=== PATIENT | female | born 1995 | race Caucasian/White ===

== ENCOUNTER 2017-08-29 07:54 | Outpatient (CLI) | payer SELFPAY | END 2017-08-29 07:55 | disposition home or self-care (01) | LOC: BICULT 07:54 | PROVIDERS: ATTEND Surgery | DX: N63.10 Unspecified lump in the right breast, unspecified quadrant (principal) ==

== ENCOUNTER 2017-09-28 10:05 | Outpatient (CLI) | payer BC ==
[2017-09-28 10:58] LABS: #Basophils 0.2 thou/uL (0.0-0.2); #Eosinphils 0.2 thou/uL (0.0-0.7); #Lymphocytes 2.5 thou/uL (1.20-3.40); #Monocytes 0.5 thou/uL (0.11-0.59); #Neutrophils 2.8 thou/uL (1.40-6.50); %Basophils 2.6 % (0.0-1.0); %Eosinophils 2.6 % (0.0-10.0); %Lymphocytes 40.5 % (21.0-51.0); %Monocytes 8.8 % (0.0-10.0); %Neutrophils 45.6 % (42.0-75.0); Hemoglobin 14.5 g/dL (12.0-16.0); Mean Corpuscular HGB CONC 33.7 g/dL (32.0-36.0); Mean Corpuscular Hemoglobin 32.6 pg (27.0-31.0); Mean Corpuscular Volume 96.7 fl (81.0-99.0); Mean Platelet Volume 7.3 fL (7.4-10.4); Platelet Count 287 thou/uL (130-400); RBC Distribution Width 11.9 % (11.5-14.5); Red Blood Cell (RBC) Count 4.44 mill/uL (4.20-5.40); White Blood Cell (WBC) Count 6.2 thou/uL (4.8-10.8)
[2017-09-28 11:17] LABS: Anion Gap 9 mmol/L (10-20); BUN (Urea Nitrogen) 10 mg/dL (7.0-18.7); Calc. Creatinine Clearance 0 mL/min (70-130); Calcium 9.7 mg/dL (7.8-10.44); Carbon Dioxide 28 mmol/L (22-29); Chloride 104 mmol/L (98-107); Estimated GFR-MDRD 88; Glucose 84 mg/dL (70-105); Potassium 3.9 mmol/L (3.5-5.1); Sodium 137 mmol/L (136-145)
[2017-09-28 11:20] LABS: BHCG - Serum Negative (NEGATIVE); Pregs Control Background? CLEAR/WHITE (CLR/WHITE); Pregs Control Bar Appear? YES (CONTROL BAR)
== END 2017-09-28 10:06 | disposition home or self-care (01) ==
LOC: LABBT 10:05
PROVIDERS: ATTEND Surgery
DX: Z01.812 Encounter for preprocedural laboratory examination (principal); N63.10 Unspecified lump in the right breast, unspecified quadrant
CPT/HCPCS: 80048; 84703; 85025

== ENCOUNTER 2017-10-07 05:54 | Day surgery (SDC) | payer BC ==
[2017-09-28 10:25] VITALS: BMI 18.8
[2017-10-07] MEDS ORDERED: Ketorolac Tromethamine 30 MG/ML VIAL ONE (06:06)
[2017-10-07] MEDS ORDERED: CEFAZOLIN/Water 2 GM/20 ML SYRINGE ONE (06:06)
[2017-10-07] MEDS ORDERED: Fentanyl 100 MCG/2 ML VIAL ONE (06:36)
[2017-10-07] MEDS ORDERED: Lidocaine 2% w/Epinephrine 1:200K 20 ML VIAL ONE (06:38)
[2017-10-07] MEDS ORDERED: Bupivacaine 0.25% HCL 30 ML VIAL ONE (06:38)
[2017-10-07] MEDS ORDERED: Midazolam HCl 2 mg/2 ml Vial ONE ×2 (07:03→09:26)
[2017-10-07] MEDS ORDERED: Scopolamine 1.5 mg/72 hour Patch ONE (07:03)
[2017-10-07] MEDS ORDERED: Non-Formulary Medication 1 EACH PO PRN (09:43)
[2017-10-07] MEDS ORDERED: Ondansetron HCl/PF 4 MG/2 ML Vial IVP PRN (09:44)
[2017-10-07] MEDS ORDERED: Promethazine HCl 25 MG/ML VIAL IM/IV PRN (09:44)
[2017-10-07] MEDS ORDERED: Dexamethasone 20 MG/5 ML VIAL ONE (14:14)
[2017-10-07] MEDS ORDERED: Ondansetron HCl/PF 4 MG/2 ML Vial ONE (14:14)
[2017-10-07] MEDS ORDERED: PROPOFOL 200 MG/20 ML VIAL ONE (14:14)
[2017-10-07] MEDS ORDERED: Lidocaine 1% PF 5 ML VIAL ONE (14:14)
[2017-10-07] MEDS ORDERED: PHENYLEPHRINE-NS 100 MCG/ML 10 ML SYRINGE ONE (14:14)
--- NOTE | 2017-10-07 17:48 | PDOC.OP ---
Operative Note - Operative Note Operative Note: PROCEDURE: Right breast mass excision with intraoperative ultrasound guidance DATE OF PROCEDURE: 10/07/2017 SURGEON: Ruchi Person M.D. PREOPERATIVE DIAGNOSES: Enlarging right breast mass POSTOPERATIVE DIAGNOSIS: Enlarging right breast mass HISTORY: Patient with right breast mass which has been followed by ultrasound. This has benign characteristics but has enlarged slightly over time so she has decided to proceed with excisional biopsy for diagnosis PROCEDURE IN DETAIL: After informed consent was obtained and appropriate preoperative antibiotics Mr. the patient was taken to the operating she was placed in supine position and general anesthesia was administered. She was prepped and draped in a standard sterile fashion and the edges of the mass identified and marked on the skin using ultrasound. A periareolar incision was made overlying the mass and dissection carried down to some dense nodular breast tissue. This was dissected free circumferentially and felt to contain the mass but on palpation of the superior cavity a residual focally nodular area was identified. This was also resected. Both specimens were marked with suture for orientation with long lateral, short superior, and looped superficial sutures. No additional focally nodular breast tissue is identified by palpation and on careful ultrasound examination no other hypoechoic masses were identified. The cavity was irrigated and hemostasis verified. The area around the biopsy cavity was injected with local anesthesia circumferentially and the subcutaneous tissues reapproximated with 3-0 Monocryl suture. Additional local anesthesia was infused into the biopsy cavity. The skin was then closed with 4-0 subcuticular Monocryl sutures. Dermabond dressings were placed and once this was dry a compression dressing was placed to the breast and the patient was extubated and taken to the recovery room in good condition. Estimated blood loss was minimal. No complications. Specimen is right breast biopsy superior breast in 2 parts.
== END 2017-10-07 12:35 | disposition home or self-care (01) ==
LOC: SDC 05:54
PROVIDERS: ATTEND Surgery
PROC: 0HBT3ZX Excision of Right Breast, Percutaneous Approach, Diagnostic (ICD-10-PCS; principal; 2017-10-07)
DX: D24.1 Benign neoplasm of right breast (principal); G43.909 Migraine, unspecified, not intractable, without status migrainosus; M41.9 Scoliosis, unspecified; Z79.3 Long term (current) use of hormonal contraceptives; Z79.899 Other long term (current) drug therapy
CPT/HCPCS: 88305; 88307; 96374; J0131; J1100; J1885; J2001; J2250; J2405; J2704; J3010; S0020

== ENCOUNTER 2018-04-19 07:38 | Outpatient (CLI) | payer BC | END 2018-04-19 07:39 | disposition home or self-care (01) | LOC: BICULT 07:38 | PROVIDERS: ATTEND Surgery | DX: N63.10 Unspecified lump in the right breast, unspecified quadrant (principal) ==